=== PATIENT | female | born 1980 | race African-American/Black ===

== ENCOUNTER 2017-04-26 23:41 | Emergency (ER) | payer OTHER ==
[2017-04-27] MEDS ORDERED: ONDANSETRON 4 MG TAB.RAPDIS PO ONE
[2017-04-27] MEDS ORDERED: ONDANSETRON ODT 4 MG TAB (6 TAB/DSPK) PO PRN (01:09)
--- NOTE | 2017-04-27 01:13 | ER Document Report ---
ED General - General Chief Complaint: Abdominal Pain Stated Complaint: VOMITING Time Seen by Provider: 04/26/17 23:59 Notes: Patient is a 37-year-old female without past medical history, one prior C- section but no additional abdominal surgical history, who presents with her child and all of whom have the same symptoms of nausea, vomiting and loose stools. The patient states the symptoms started earlier today and have been persistent throughout the day. She has been unable to tolerate any form of oral intake since onset of vomiting. She notes a epigastric abdominal cramping after multiple episodes of vomiting but describes it as mild and generally improving since she has not vomited in the past several hours. She has not tried anything for improvement of her symptoms at home and nothing worsens her symptoms other than attempting to take oral intake - Related Data Allergies/Adverse Reactions: No Known Allergies Allergy (Verified 04/26/17 23:42) Past Medical History - General Information source: Patient - Social History Smoking Status: Never Smoker Frequency of alcohol use: None Drug Abuse: None Lives with: Spouse/Significant other Family History: Reviewed & Not Pertinent Patient has suicidal ideation: No Patient has homicidal ideation: No Renal/ Medical History: Denies: Hx Peritoneal Dialysis Past Surgical History: Reports: Hx Section - Immunizations Hx Diphtheria, Pertussis, Tetanus Vaccination: No Review of Systems - Review of Systems Notes: Constitutional: Negative for fever. HENT: Negative for sore throat. Eyes: Negative for visual changes. Cardiovascular: Negative for chest pain. Respiratory: Negative for shortness of breath. Gastrointestinal: Positive for abdominal pain, vomiting and diarrhea Genitourinary: Negative for dysuria. Musculoskeletal: Negative for back pain. Skin: Negative for rash. Neurological: Negative for headaches, weakness or numbness. 10 point ROS negative except as marked above and in HPI. Physical Exam - Vital signs Vitals: Temp Pulse Resp BP Pulse Ox 97.9 F 83 16 118/54 L 100 04/26/17 23:46 04/26/17 23:46 04/26/17 23:46 04/26/17 23:46 04/26/17 23:46 Interpretation: Normal Notes: PHYSICAL EXAMINATION: GENERAL: Well-appearing, well-nourished and in no acute distress. HEAD: Atraumatic, normocephalic. EYES: Pupils equal round and reactive to light, extraocular movements intact, sclera anicteric, conjunctiva are normal. ENT: nares patent, oropharynx clear without exudates. Moderately dry mucous membranes. NECK: Normal range of motion, supple without lymphadenopathy LUNGS: Breath sounds clear to auscultation bilaterally and equal. No wheezes rales or rhonchi. HEART: Regular rate and rhythm without murmurs ABDOMEN: Soft, nontender, normoactive bowel sounds. No guarding, no rebound. No masses appreciated. EXTREMITIES: Normal range of motion, no pitting or edema. No cyanosis. NEUROLOGICAL: No focal neurological deficits. Moves all extremities spontaneously and on command. PSYCH: Normal mood, normal affect. SKIN: Warm, Dry, normal turgor, no rashes or lesions noted. Course - Re-evaluation Re-evalutation: 04/27/17 01:08 Presentation of an overall well-appearing patient in no acute distress with complaints of nausea, vomiting, diarrhea. The patient is here with her daughter and have the exact same symptoms. This is consistent with likely viral gastroenteritis versus possible foodborne contamination. Patient has no abdominal tenderness on exam and specifically no tenderness in the RLQ, LLQ, RUQ. Overall well hydrated on exam. Able to tolerate oral intake here in the emergency department. Low clinical suspicion for any acute life-threatening etiology based on exam and history including acute cholecystitis, SBO, appendicitis, nephrolithiasis, or pylonephritis. At this time will discharge with return precautions and follow-up recommendations. Verbal discharge instructions given a the bedside and opportunity for questions given. Medication warnings reviewed. Patient is in agreement with this plan and has verbalized understanding of return precautions and the need for primary care follow-up in the next 24-72 hours. - Vital Signs Vital signs: Temp Pulse Resp BP Pulse Ox 97.9 F 83 16 118/54 L 100 04/26/17 23:46 04/26/17 23:46 04/26/17 23:46 04/26/17 23:46 04/26/17 23:46 Discharge - Discharge Clinical Impression: Vomiting and diarrhea Condition: Good Disposition: HOME, SELF-CARE Additional Instructions: Your symptoms are likely due to a viral illness and should resolve in the next several days. You can take [id number] loperamide also known as Imodium as needed for diarrhea per box instructions. Continue to stay hydrated with plenty of solution such as Gatorade or Pedialyte. You are being prescribed Zofran to take as needed for nausea and vomiting. Please return if you develop severe abdominal pain, pass out, become unable to tolerate any oral fluids for 12 more hours, or any other symptoms that are concerning to you.
[2017-04-27 01:35] VITALS: BP 110/58
== END 2017-04-27 01:38 | disposition home or self-care (01) ==
LOC: ER 23:41
DX: R11.2 Nausea with vomiting, unspecified (principal); R19.7 Diarrhea, unspecified; R10.13 Epigastric pain
CPT/HCPCS: 99283; S0119

== ENCOUNTER 2020-01-02 15:24 | Emergency (ER) | payer MEDICAID, OTHER ==
--- NOTE | 2020-01-02 16:07 | ER Document Report ---
ED Medical Screen (RME) - General Chief Complaint: Chest Pain Stated Complaint: CHEST PAIN Time Seen by Provider: 01/02/20 16:00 - HPI Notes: 01/02/20 16:06 39-year-old female presents emergency room with left-sided chest pain that radiates between her shoulder blades and now down her left arm for the last 2 months but now has become worse in the last couple of days. Reports that her pain before was a dull pain and constant and now her pain is sharp over the last couple of days. Patient does not smoke, states her mom had a history of hypertension, hyperlipidemia and her father recently had a stroke in January 2019. Patient is not on any blood thinners or on control. She reports she still is having this constant sharp pain. Has not tried any [id number] medications. She states that she is ignored it for couple months because she thought it was musculoskeletal but since she started having sharp pain she went to her doctor who advised her to come to the emergency room for further evaluation. Denies any shortness of breath, nausea vomiting diarrhea, fever, chills I have greeted and performed a rapid initial assessment of this patient. A comprehensive ED assessment and evaluation of the patient, analysis of test results and completion of the medical decision making process will be conducted by additional ED providers. PHYSICAL EXAMINATION: GENERAL: Well-appearing, well-nourished and in no acute distress. HEAD: Atraumatic, normocephalic. EYES: Pupils equal round extraocular movements intact, conjunctiva are normal. NECK: Normal range of motion CV: s1, s2 regular LUNGS: No respiratory distress Musculoskeletal: Normal range of motion NEUROLOGICAL: Normal speech, normal gait. SKIN: Warm, Dry, normal turgor, no rashes or lesions noted. - Related Data Allergies/Adverse Reactions: No Known Allergies Allergy (Verified 04/26/17 23:42) Past Medical History - Social History Frequency of alcohol use: None Drug Abuse: None Renal/ Medical History: Denies: Hx Peritoneal Dialysis Past Surgical History: Reports: Hx Section - Immunizations Hx Diphtheria, Pertussis, Tetanus Vaccination: No Physical Exam - Vital signs Vitals: Temp Pulse Resp BP Pulse Ox 98.3 F 78 16 131/57 H 100 01/02/20 15:33 01/02/20 15:33 01/02/20 15:33 01/02/20 15:33 01/02/20 15:33 Course - Vital Signs Vital signs: Temp Pulse Resp BP Pulse Ox 98.3 F 78 16 131/57 H 100 01/02/20 15:33 01/02/20 15:33 01/02/20 15:33 01/02/20 15:33 01/02/20 15:33
--- NOTE | 2020-01-02 17:08 | EKG REPORT ---
SEVERITY:- NORMAL ECG - SINUS RHYTHM : Confirmed by: Milagro Gary MD 02-Jan-2020 17:07:23
[2020-01-02 17:31] LABS: ABSOLUTE BASOPHILS # (AUTO) 0.1 10^3/uL (0.0-0.2); ABSOLUTE EOSINOPHILS # (AUTO) 0.1 10^3/uL (0.0-0.6); ABSOLUTE LYMPHOCYTES (AUTO) 1.8 10^3/uL (0.5-4.7); ABSOLUTE MONOCYTES (AUTO) 0.6 10^3/uL (0.1-1.4); ABSOLUTE NEUT (AUTO) 2.1 10^3/uL (1.7-8.2); BASOPHILS % (AUTO) 1.1 % (0-2); EOSINOPHILS % (AUTO) 1.2 % (0-6); HEMATOCRIT 38.3 % (36.0-47.0); LYMPHOCYTES % (AUTO) 39.1 % (13-45); MEAN CORPUSCULAR HEMOGLOBIN 27.9 pg (27.0-33.4); MEAN CORPUSCULAR VOLUME 82 fl (80-97); MONOCYTES % (AUTO) 12.2 % (3-13); PLATELET COUNT 210 10^3/uL (150-450); RED BLOOD COUNT 4.67 10^6/uL (3.72-5.28); RED CELL DISTRIBUTION WIDTH 14.4 % (11.5-14.0); SEGMENTED NEUTROPHILS % (AUTO) 46.4 % (42-78); TOTAL CELLS COUNTED % (AUTO) 100 %; WHITE BLOOD COUNT 4.6 10^3/uL (4.0-10.5)
[2020-01-02 17:39] LABS: ALBUMIN 4.9 g/dL (3.5-5.0); ALKALINE PHOSPHATASE 44 U/L (38-126); ANION GAP 7 (5-19); ASPARTATE AMINO TRANSFERASE 27 U/L (14-36); BILIRUBIN,DIRECT 0.3 mg/dL (0.0-0.4); BILIRUBIN,TOTAL 0.4 mg/dL (0.2-1.3); BLOOD UREA NITROGEN 16 mg/dL (7-20); CARBON DIOXIDE 25 mmol/L (22-30); CHLORIDE 104 mmol/L (98-107); CREATINE KINASE 188 U/L (30-135); GLUCOSE 100 mg/dL (75-110); POTASSIUM 4.8 mmol/L (3.6-5.0); TOTAL PROTEIN 8.3 g/dL (6.3-8.2)
--- NOTE | 2020-01-02 17:39 | RADIOLOGY REPORT (SQ) ---
EXAM DESCRIPTION: CHEST 2 VIEWS IMAGES COMPLETED DATE/TIME: 01/02/2020 5:26 pm REASON FOR STUDY: chest pain COMPARISON: None. EXAM PARAMETERS: NUMBER OF VIEWS: two views TECHNIQUE: Digital Frontal and Lateral radiographic views of the chest acquired. RADIATION DOSE: NA LIMITATIONS: none FINDINGS: LUNGS AND PLEURA: No opacities, masses or pneumothorax. No pleural effusion. MEDIASTINUM AND HILAR STRUCTURES: No masses or contour abnormalities. HEART AND VASCULAR STRUCTURES: Heart normal size. No evidence for failure. BONES: No acute findings. HARDWARE: None in the chest. OTHER: No other significant finding. IMPRESSION: 1. NO ACUTE RADIOGRAPHIC FINDING IN THE CHEST. TECHNICAL DOCUMENTATION: JOB ID: [id number] 2010 [employer]- All Rights Reserved Reading location - IP/workstation name: [email or web address]
[2020-01-02 17:50] LABS: CREATINE KINASE MB 1.68 ng/mL (<4.55)
[2020-01-02 17:51] LABS: TROPONIN I < 0.012 ng/mL
--- NOTE | 2020-01-02 19:04 | ER Document Report ---
ED General - General Chief Complaint: Chest Pain Stated Complaint: CHEST PAIN Time Seen by Provider: 01/02/20 16:00 Notes: 39 year old female sent to the ED by her PCP due to chest pain. Patient states that she has been having constant chest pain on the left side for the past several months, but over the past few days it has worsened and last night it became sharp and stabbing, radiated to her left shoulder and was associated with feeling like she was gasping for air. She set up an appointment to be seen as an outpatient was sent to the emergency department due to the change in the nature of her chest pain. Patient denies any history of DVT or PE, denies any personal cardiac history however states that her mother of heart failure in her 40s and had her first heart attack in her 30s. Patient denies any recent travel, surgery, cancer or smoking. Denies any recent immobilization. - Related Data Allergies/Adverse Reactions: No Known Allergies Allergy (Verified 04/26/17 23:42) Past Medical History - General Information source: Patient - Social History Smoking Status: Former Smoker Frequency of alcohol use: None Drug Abuse: None Family History: CAD - Mother with heart attacks starting in her 30s and from heart failure in her 40s., Other - Mother with lupus. Renal/ Medical History: Denies: Hx Peritoneal Dialysis Past Surgical History: Reports: Hx Section - Immunizations Hx Diphtheria, Pertussis, Tetanus Vaccination: No Review of Systems - Review of Systems Constitutional: No symptoms reported EENT: No symptoms reported Cardiovascular: See HPI Respiratory: See HPI -: Yes All other systems reviewed and negative Physical Exam - Vital signs Vitals: Temp Pulse Resp BP Pulse Ox 98.3 F 78 16 131/57 H 100 01/02/20 15:33 01/02/20 15:33 01/02/20 15:33 01/02/20 15:33 01/02/20 15:33 Interpretation: Normal - Notes Notes: GENERAL: Alert, interacts well. No acute distress. HEAD: Normocephalic, atraumatic EYES: Pupils equal, round and reactive to light, extraocular movements intact. ENT: Oral mucosa moist, tongue midline. NECK: Full range of motion, supple, trachea midline. LUNGS: Clear to auscultation bilaterally, no wheezes, rales or rhonchi, no respiratory distress. HEART: Regular rate and rhythm, no murmurs, gallops, rubs. ABDOMEN: Soft, nontender, nondistended, bowel sounds present in all 4 quadrants. EXTREMITIES: Moves all 4 extremities spontaneously, no edema, radial and dorsalis pedis pulses 2/4 bilaterally. No cyanosis. NEUROLOGICAL: Alert and oriented x3, normal speech. PSYCH: Normal mood, normal affect. SKIN: Warm, Dry, normal turgor, no rashes or lesions noted. Course - Re-evaluation Re-evalutation: 01/02/20 20:17 CBC unremarkable, CMP grossly unremarkable, troponin negative x2, chest x-ray unremarkable. EKG is nonischemic. Patient's chest pain does not worsen with exertion, is actually resolved at this time, patient does not become hypoxic, tachypneic or tachycardic on ambulation around the emergency department. Very low suspicion for pulmonary embolism at this time. Low suspicion for ischemic cardiac disease. Discussed with patient that I do not have an exact cause for why she has been having left-sided chest pain for several months. Given family history of mother developing her first heart attack in her 30s I do recommend that she follow-up with cardiology as an outpatient for further risk stratification. Patient is encouraged to take ibuprofen for her pain, given muscle relaxer and discharge to home. - Vital Signs Vital signs: Temp Pulse Resp BP Pulse Ox 98.3 F 78 12 109/55 L 100 01/02/20 15:33 01/02/20 15:33 01/02/20 20:00 01/02/20 20:00 01/02/20 20:00 - Laboratory Result Diagrams: 01/02/20 16:33 01/02/20 16:33 Laboratory results interpreted by me: 01/02/20 01/02/20 16:33 16:33 RDW 14.4 H Sodium 136.2 L Creatine Kinase 188 H Total Protein 8.3 H - EKG Interpretation by Me Additional EKG results interpreted by me: 01/02/20 19:04 EKG shows sinus rhythm at a rate of 64, normal axis, normal intervals, no ST segment elevations or depressions, T wave biphasic in V2 per my interpretation. Discharge - Discharge Clinical Impression: Left-sided chest pain Condition: Stable Disposition: HOME, SELF-CARE Additional Instructions: Today we did not find any signs of a heart attack or a blood clot to your lungs. Given your family history of your mother having her first heart attack in her 30s it would be a good idea for you to follow-up with a [facility] as an outpatient anyway. They will be able to discuss with you any further testing that you might need or early testing that might need to be started given your family history of early cardiac disease. I would like you to try taking ibuprofen 800 mg every 8 hours for the next 3 days to see if it decreases your pain. I have also prescribed a muscle relaxer called Robaxin that may help with the pain in your chest if it is coming from any spasms from muscles in your chest. Please return for worsening chest pain, shortness of breath, fevers, any difficulty breathing or any new or concerning symptoms. Prescriptions: Methocarbamol [Robaxin 750 mg Tablet] 750 mg PO Q8HP PRN #20 tablet PRN Reason: For Chest Pain Referrals: BONY ROLDAN NP [Primary Care Provider] - Follow up as needed AZALEA BASS MD [ACTIVE PROVISIONAL STAFF] - Follow up as needed
[2020-01-02 20:57] VITALS: BP 113/65
== END 2020-01-02 20:57 | disposition home or self-care (01) ==
LOC: ER 15:24
DX: R07.9 Chest pain, unspecified (principal); Z87.891 Personal history of nicotine dependence; Z82.49 Family history of ischemic heart disease and other diseases of the circulatory system
CPT/HCPCS: 36415; 71046; 80053; 82550; 82553; 84484; 85025; 93005; 93010; 99285